=== PATIENT | female | born 1975 | race Two or more races ===

== ENCOUNTER 2025-03-12 15:27 | Inpatient (IN) | payer OTHER ==
[~2025-03-12] VITALS: Ht 170.2 cm; Wt 111.6 kg
--- NOTE | 2025-03-12 15:49 | ED.PDOC ---
GI ASSESSMENT HPI Comments 49-year-old female with a history of asthma and fibromyalgia brought in by self complaining of mid and lower abdominal pain and diarrhea for the last week. Patient states the pain is cramping, which has now progressed to burning, and she has had multiple episodes of diarrhea despite taking Imodium 7 or 8 times. She did have 1 episode of nausea and vomiting. She denies any blood in her vomit or stools. She denies fever, dysuria or sick contacts. Time Seen by MD: 15:30 Reviewed Notes: Nurses Notes, Medications, Allergies Allergies: Coded Allergies: Aspirin (Verified Allergy, Unknown, 03/12/25) Chlorhexidine (Verified Allergy, Unknown, 03/12/25) Latex (Verified Allergy, Unknown, 03/12/25) Sulfa Antibiotics (Verified Allergy, Unknown, 03/12/25) Information Source: Patient Mode of Arrival: Ambulatory Timing: Days Duration: Since onset, Days Prehospital treatment: None Quality: Burning, Cramping Vomitus: Bilious Stool: Loose Severity: Moderate Recent: None Recent Hx of: None Pain Location: Diffuse Associated sign and symptoms: Nausea, Vomiting, Diarrhea, Abdominal Pain Past Medical History PAST MEDICAL HISTORY: Asthma Past Medical History (Other): Fibromyalgia Surgical History: Appendectomy, Cholecystectomy, , Hernia Repair Surgical History (Other): perforated ulcer, Gastric Bypass, pilonidal cyst removal HOME APPLIANCE INSTALLER History: No Pertinent HOME APPLIANCE INSTALLER History Family History Family History: Reviewed,noncontributory to illness, Unknown Social History Smoker: Non-Smoker Alcohol: Denies ETOH Use Drugs: Denies Drug Use Lives In: Home Constitutional: denies: chills, diaphoresis, fatigue, fever, malaise, sweats, weakness, others EENTM: denies: blurred vision, double vision, ear bleeding, ear discharge, ear drainage, ear pain, ear ringing, eye pain, eye redness, hearing loss, mouth pain, mouth swelling, nasal discharge, nose bleeding, nose congestion, nose pain, photophobia, tearing, throat pain, throat swelling, voice changes, others Respiratory: denies: cough, hemoptysis, orthopnea, SOB at rest, shortness of breath, SOB with excertion, stridor, wheezing, others Cardiovascular: denies: chest pain, dizzy spells, diaphoresis, Dyspnea on exertion, edema, irregular heart beat, left arm pain, lightheadedness, palpitations, PND, syncope, others Gastrointestinal: reports: abdominal pain, diarrhea, nausea, vomiting; denies: abdomen distended, blood streaked bowels, constipated, dysphagia, difficulty swallowing, hematemesis, melena, poor appetite, poor fluid intake, rectal bleeding, rectal pain, others Genitourinary: denies: abnormal vagina bleeding, burning, dyspareunia, dysuria, flank pain, frequency, hematuria, incontinence, pain, , vagina discharge, urgency, others Neurological: denies: dizziness, fainting, headache, left sided numbness, left sided weakness, numbness, paresthesia, pre-existing deficit, right sided numbness, right sided weakness, seizure, speech problems, tingling, tremors, weakness, others Musculoskeletal: denies: back pain, gout, joint pain, joint swelling, muscle pain, muscle stiffness, neck pain, others Integumetry: denies: bruises, change in color, change in hair/nails, dryness, laceration, lesions, lumps, rash, wounds, others Allergic/Immunocompromised: denies: Difficulty Healing, Frequent Infections, Hives, Itching, others Hematologic/Lymphatic: denies: anemia, blood clots, easy bleeding, easy bruising, swollen glands, others Endocrine: denies: excessive hunger, excessive sweating, excessive thirst, excessive urination, flushing, intolerance to cold, intolerance to heat, unexplained weight gain, unexplained weight loss, others Psychiatric: denies: anxiety, bipolar disorder, depression, hopeless, panic disorder, schizophrenia, sleepless, suicidal, others All Other Systems: Reviewed and Negative Physical Exam General Appearance: Mild Distress, Obese HEENT: Other (Pupils and face symmetric. Dry mucous membranes.) Neck: Full Range of Motion, Normal Inspection Respiratory: Lungs Clear, No Accessory Muscle Use, No Respiratory Distress, Normal Breath Sounds Cardiovascular: No Edema, No JVD, Regular Rate/Rhythm Breast Exam: Deferred Gastrointestinal: Soft, Tenderness (Generalized periumbilical and lower abdominal tenderness to palpation. No rebound or guarding.) Genitalia: Deferred Pelvic: Deferred Rectal: Deferred Extremities: Normal inspection, Normal range of motion, Non-tender, No pedal edema Musculoskeletal : Apperance: Normal Neurologic: Alert (Oriented x4), Normal Affect, Normal Mood, Other (Ambulatory without difficulty. ) Cerebellar Function: NOT DONE Reflexes: NOT DONE Skin: Dry, Normal Color, Warm Lymphatic: NOT DONE Was a procedure done? Was a procedure done?: No GI differential Dx Differential Diagnosis: Diverticular disease, Gastritis/PUD, Gastroenteritis, Inflammatory BD, Ischemic Bowel, UTI, Dehydration, Diabetes/ DKA, Electrolyte Imbalance, Food Poisoning, , Bacterial, Viral, Hypovolemia, Renal Failure, Stress Ulcer, Kidney Stone X-Ray, Labs, Meds, VS Vital Signs Date Time Temp Pulse Resp B/P (MAP) Pulse Ox O2 Delivery O2 Flow Rate FiO2 03/12/25 21:30 98.9 73 18 120/75 96 98.9 03/12/25 17:12 73 18 120/75 (90) 96 03/12/25 17:12 73 18 120/75 03/12/25 16:41 95 16 135/90 03/12/25 16:29 69 16 95 Room Air 03/12/25 16:29 98.9 69 16 135/90 (105) 95 98.9 03/12/25 15:45 98.9 67 18 109/58 (75) 97 98.9 Lab Test 03/12/25 16:15 03/12/25 15:48 Range/Units White Blood Count 6.7 4.4-10.8 10^3/uL Red Blood Count 4.67 4.0-5.20 10^6/uL Hemoglobin 13.8 12.2-16.2 g/dL Hematocrit 40.9 36.0-46.0 % Mean Corpuscular Volume 87.6 80.0-100.0 fL Mean Corpuscular Hemoglobin 29.6 28.0-32.0 pg Mean Corpuscular Hemoglobin Concent 33.8 32.0-36.0 g/dL Red Cell Distribution Width 14.5 H 11.8-14.3 % Platelet Count 179 140-450 10^3/uL Mean Platelet Volume 11.5 H 6.9-10.8 fL Neutrophils (%) (Auto) 58.9 37.0-80.0 % Lymphocytes (%) (Auto) 29.1 10.0-50.0 % Monocytes (%) (Auto) 9.9 0.0-12.0 % Eosinophils (%) (Auto) 1.8 0.0-7.0 % Basophils (%) (Auto) 0.3 0.0-2.0 % Neutrophils # (Auto) 3.9 1.6-8.6 10 ^3/uL Lymphocytes # (Auto) 1.9 0.4-5.4 10 ^3/uL Monocytes # (Auto) 0.7 0-1.3 10 ^3/uL Eosinophils # (Auto) 0.1 0-0.8 10 ^3/uL Basophils # (Auto) 0 0-0.2 10 ^3/uL Nucleated Red Blood Cells 0.1 % Sodium Level 142 136-145 mmol/L Potassium Level 3.8 3.5-5.1 mmol/L Chloride Level 108 H 98-107 mmol/L Carbon Dioxide Level 26 20-31 mmol/L Anion Gap 8 5-15 Blood Urea Nitrogen 7 L 9-23 mg/dL Creatinine 0.82 0.550-1.02 mg/dL Glomerular Filtration Rate Calc 87 >90 mL/min BUN/Creatinine Ratio 8.5 L 10.0-20.0 Serum Glucose 101 74-106 mg/dL Lactic Acid Level 0.9 0.4-2.0 mmol/L Calcium Level 9.6 8.7-10.4 mg/dL Total Bilirubin 0.9 0.2-1.0 mg/dL Aspartate Amino Transferase (AST) 16 13-40 U/L Alanine Aminotransferase (ALT) 21 7-40 U/L Alkaline Phosphatase 86 46-116 U/L Total Protein 6.9 5.7-8.2 g/dL Albumin 4.4 3.2-4.8 g/dL Lipase 30 12-53 U/L Beta HCG, Quantitative 5.5 H 1.5-4.2 mIU/mL Urine Color Light-yellow Yellow Urine Clarity Clear Clear Urine pH 6.0 5.0-9.0 Urine Specific [place] 1.014 1.001-1.035 Urine Protein Negative Negative Urine Ketones Negative Negative Urine Blood Negative Negative /uL Urine Nitrite Negative Negative Urine Bilirubin Negative Negative Urine Urobilinogen Normal Negative mg/dL Urine Leukocyte Esterase Negative Negative /uL Urine RBC <1 0 - 4 /hpf Urine Microscopic WBC 1 0-5 /HPF Urine Squamous Epithelial Cells Few <5 /hpf Urine Bacteria None seen None Seen /hpf Urine Glucose Normal Normal mg/dL Urine Test Negative Negative Current Medications Medications (Trade) Dose Ordered Sig/Tim Route Start Time Stop Time Status Last Admin Sodium Chloride 2,000 ml @ 1,000 mls/hr Q2H ONCE IV 03/12/25 16:00 03/12/25 17:59 DC 03/12/25 16:21 Ondansetron HCl (Zofran) 4 mg ONCE ONCE IV 03/12/25 16:00 03/12/25 16:01 DC 03/12/25 16:39 Dicyclomine HCl (Bentyl Injection) 20 mg ONCE ONCE IM 03/12/25 16:00 03/12/25 16:01 DC 03/12/25 16:25 Hydromorphone HCl (Dilaudid Injection) 1 mg ONCE ONCE IV 03/12/25 16:00 03/12/25 16:01 DC 03/12/25 16:41 Pantoprazole Sodium (Protonix) 40 mg ONCE ONCE IV 03/12/25 16:00 03/12/25 16:01 DC 03/12/25 16:40 PROCEDURE(s): ABPL - CT AB PEL WO CON-NO ORAL OR IV REASON: mid/low abd pain, n/v/d ORDER NUMBER(s): [id number], ACCESSION NUMBER(s): [id number] Exam: CT CT AB PEL WO CON-NO ORAL OR IV History: mid/low abd pain, n/v/d Comparison Study: None available at time of dictation. TECHNIQUE: Multidetector CT of the abdomen was performed from lung bases to pubic symphysis. Imaging was performed without IV contrast. Axial, coronal and sagittal multiplanar reformats were obtained from the axial data set by the technologist. Radiation Dose Information: CT Dose: CTDI volume is 26.51 mGy. Dose-length product is 1431.12 mGy*cm FINDINGS: Evaluation of solid organs is limited due to lack of intravenous contrast use. Findings: Lung Bases: No acute or significant lung base finding. Normal heart size. No pleural or pericardial effusion. Liver: The liver is normal in size. No focal lesions. Gallbladder and Biliary Tree: Gallbladder has been surgically removed. Spleen: Unremarkable Pancreas: The pancreas is grossly normal in appearance. Adrenal Glands: Unremarkable Kidneys: Kidneys are grossly normal without calculi or hydronephrosis. Bladder: Grossly unremarkable for degree of distention. Bowel: The stomach is grossly normal in appearance. Postop changes in the stom ach. Small bowel and colon are normal in caliber and distribution. The appendix is not visualized; however, no secondary findings of acute appendicitis identified. Ascites: Absent Lymphadenopathy: No mesenteric, retroperitoneal or periportal lymphadenopathy. Abdominal Wall and Mesentery: 6 cm umbilical hernia containing mesenteric fat and bowel. Vasculature: The visualized abdominal aorta is normal in size and caliber. Evaluation of abdominal and pelvic vessels is limited due to lack of intravenous contrast. Pelvic Organs: Unremarkable Musculoskeletal: No aggressive focal bony lesions, acute fractures or dislocation. Soft tissues: Unremarkable IMPRESSION: 1. Gallbladder surgically removed 2. Postop changes to the stomach 3. No findings to suggest bowel obstruction. 4. No nephrolithiasis or hydronephrosis. 5. 6 cm umbilical hernia containing bowel and mesenteric fat. Radiation optimization: All CT scans at this facility use at least one of these dose optimization techniques: automated exposure control mA and/or kV adjustment per patient size (includes targeted exams where dose is matched to clinical indication) or iterative reconstruction. X-Ray, Labs, Meds, VS Comment 49-year-old female with a history of asthma and fibromyalgia complaining of abdominal cramping/burning pain, persistent diarrhea despite taking multiple doses of Imodium, nausea and vomiting Vitals remarkable for BP 109/58 Exam remarkable for generalized mid and lower abdominal tenderness to palpation Rhythm strip independently interpreted by me: Sinus rhythm, rate 67, no ectopy. CT abdomen and pelvis IMPRESSION: 1. Gallbladder surgically removed 2. Postop changes to the stomach 3. No findings to suggest bowel obstruction. 4. No nephrolithiasis or hydronephrosis. 5. 6 cm umbilical hernia containing bowel and mesenteric fat. CBC, CMP, lipase, UA and lactate unremarkable Patient treated with the following in the ED: 1 L 0.9 normal saline IV bolus, Dilaudid 1 mg IV, Zofran 4 mg IV, Protonix 40 mg IV, Bentyl 20 mg IM, Dilaudid 1 mg IV On re-evaluation, patient states pain is still present. She is still having diarrhea every time she takes in anything orally. Plan is to admit the patient for pain control and ongoing IV hydration. Time of 1ST Reevaluation: 16:00 Reevaluation 1ST: Unchanged Patient Education/Counseling: Diagnosis, Treatment, Prognosis Family Education/Counseling: No Family Present Departure 1 Departure Time of Disposition: 19:19 Impression: Primary Impression: Vomiting and diarrhea Additional Impression: Intractable abdominal pain Disposition: ADMITTED INPATIENT Admit to: Med Surg Condition: Guarded Critical Care Note Critical Care Time?: No Stability Stability form required: No Heart Score Heart Score: Heart Score Response (Comments) Value History N/A 0 EKG N/A 0 Age N/A 0 Risk Factors N/A 0 Troponin N/A 0 Total 0 I personally scribed for DAVID ZARATE MD ([email or web address]) on 03/12/25 at 15:49. Electronically submitted by Saulo Begum ([email or web address]). DAVID ZARATE MD Mar 12, 2025 15:49
[2025-03-12] MEDS: SODIUM CHLORIDE 0.9% 2,000 ML IV ONE (16:21)
[2025-03-12] MEDS: DICYCLOMINE HCL (10MG/ML) 2 ML AMPULE IM ONE (16:25)
[2025-03-12] MEDS: ONDANSETRON HCL 4 MG/2 ML VIAL IV ONE ×2 (16:39→22:01)
[2025-03-12] MEDS: PANTOPRAZOLE 40 MG/10 ML VIAL INJ IV ONE (16:40)
[2025-03-12] MEDS: HYDROmorphone HCL 2 MG/ML VL/or syr IV ONE ×2 (16:41→21:53)
[2025-03-12 16:47] LABS: Basophils # (auto) 0 10 ^3/uL (0-0.2); Basophils % (auto) 0.3 % (0.0-2.0); Eosinophils # (auto) 0.1 10 ^3/uL (0-0.8); Eosinophils % (auto) 1.8 % (0.0-7.0); Hematocrit 40.9 % (36.0-46.0); Hemoglobin 13.8 g/dL (12.2-16.2); Lymphocytes # (auto) 1.9 10 ^3/uL (0.4-5.4); Lymphocytes % (auto) 29.1 % (10.0-50.0); Mean Corpuscular Hemoglobin 29.6 pg (28.0-32.0); Mean Corpuscular Hgb Conc. 33.8 g/dL (32.0-36.0); Mean Corpuscular Volume 87.6 fL (80.0-100.0); Monocytes # (auto) 0.7 10 ^3/uL (0-1.3); Monocytes % (auto) 9.9 % (0.0-12.0); Neutrophils # (auto) 3.9 10 ^3/uL (1.6-8.6); Neutrophils % (auto) 58.9 % (37.0-80.0); Nucleated Red Blood Cells % 0.1 %; Platelet Count (auto) 179 10^3/uL (140-450); Red Blood Cells 4.67 10^6/uL (4.0-5.20); Red Cell Distribution Width 14.5 % (11.8-14.3); White Blood Cell 6.7 10^3/uL (4.4-10.8)
[2025-03-12 17:00] LABS: Alanine Aminotransferase 21 U/L (7-40); Albumin 4.4 g/dL (3.2-4.8); Alkaline Phosphatase 86 U/L (46-116); Anion Gap 8 (5-15); Aspartate Aminotransferase 16 U/L (13-40); BUN/Creatinine Ratio 8.5 (10.0-20.0); Calcium 9.6 mg/dL (8.7-10.4); Carbon Dioxide 26 mmol/L (20-31); Glucose 101 mg/dL (74-106); Lipase 30 U/L (12-53); Potassium 3.8 mmol/L (3.5-5.1); Sodium 142 mmol/L (136-145); Total Protein 6.9 g/dL (5.7-8.2)
[2025-03-12 17:01] LABS: Bilirubin, Total 0.9 mg/dL (0.2-1.0); Blood Urea Nitrogen 7 mg/dL (9-23); Chloride 108 mmol/L (98-107)
[2025-03-12 17:06] LABS: Urine Bacteria None Seen /hpf (None Seen)
[2025-03-12 17:17] LABS: Urine Blood Negative /uL (Negative); Urine Clarity Clear (Clear); Urine Color Light-Yellow (Yellow); Urine Protein, UAD Negative (Negative); Urine Specific Gravity 1.014 (1.001-1.035); Urine Squamous Epithelial Cell FEW /hpf (<5); Urine Urobilinogen Normal (Negative); Urine WBC 1 /HPF (0-5)
--- NOTE | 2025-03-12 18:35 | DVH ---
Exam: CT CT AB PEL WO CON-NO ORAL OR IV History: mid/low abd pain, n/v/d Comparison Study: None available at time of dictation. TECHNIQUE: Multidetector CT of the abdomen was performed from lung bases to pubic symphysis. Imaging was performed without IV contrast. Axial, coronal and sagittal multiplanar reformats were obtained fr om the axial data set by the technologist. Radiation Dose Information: CT Dose: CTDI volume is 26.51 mGy. Dose-length product is 1431.12 mGy*cm FINDINGS: Evaluation of solid organs is limited due to lack of intravenous contrast use. Findings: Lung Bases: No acute or significant lung base finding. Normal heart size. No pleural or pericardial effusion. Liver: The liver is normal in size. No focal lesions. Gallbladder and Biliary Tree: Gallbladder has been surgically removed. Spleen: Unremarkable Pancreas: The pancreas is grossly normal in appearance. Adrenal Glands: Unremarkable Kidneys: Kidneys are grossly normal without calculi or hydronephrosis. Bladder: Grossly unremarkable for degree of distention. Bowel: The stomach is grossly normal in appearance. Postop changes in the stomach. Small bowel and co maite are normal in caliber and distribution. The appendix is not visualized; however, no secondary fi ndings of acute appendicitis identified. Ascites: Absent Lymphadenopathy: No mesenteric, retroperitoneal or periportal lymphadenopathy. Abdominal Wall and Mesentery: 6 cm umbilical hernia containing mesenteric fat and bowel. Vasculature: The visualized abdominal aorta is normal in size and caliber. Evaluation of abdominal a nd pelvic vessels is limited due to lack of intravenous contrast. Pelvic Organs: Unremarkable Musculoskeletal: No aggressive focal bony lesions, acute fractures or dislocation. Soft tissues: Unremarkable IMPRESSION: 1. Gallbladder surgically removed 2. Postop changes to the stomach 3. No findings to suggest bowel obstruction. 4. No nephrolithiasis or hydronephrosis. 5. 6 cm umbilical hernia containing bowel and mesenteric fat. Radiation optimization: All CT scans at this facility use at least one of these dose optimization mina hniques: automated exposure control mA and/or kV adjustment per patient size (includes targeted exam s where dose is matched to clinical indication) or iterative reconstruction.
[2025-03-12] MEDS ORDERED: LOPERAMIDE HCL 2 MG CAP/TAB PO PRN (21:15)
[2025-03-12] MEDS ORDERED: ALBUTEROL SULF 2.5 MG/0.5ML(0.5%) NEB SOLN NEB PRN (21:15)
[2025-03-12 21:30] VITALS: BP 120/75; PULSE 73; RESP 18; TEMP 98.9; O2SAT 96
[2025-03-12 21:44] VITALS: PULSE 64; RESP 16; O2SAT 97
[2025-03-12 21:51] VITALS: O2SAT 96
[2025-03-12] MEDS: SODIUM CHLORIDE 0.9% 1,000 ML IV ONE (22:01)
[2025-03-12] MEDS: GABAPENTIN 100 MG CAP PO SCH (22:07)
[2025-03-13] VITALS (12 sets, daily range): BP systolic 97–126; BP diastolic 50–77; PULSE 58–77; RESP 16–18; TEMP 97.3–98.3; O2SAT 95–98
--- NOTE | 2025-03-13 00:45 | DVHHP2 ---
History of Present Illness Reason for Visit: Abdominal pain History of Present Illness 49-year-old female presents for evaluation of abdominal pain. Patient endorses a one-week history of diffuse abdominal pain with associated diarrhea. Denies nausea or vomiting. She reports having seven episodes of watery diarrhea today. No fever or chills. No other acute complaints. Past Medical History Asthma and fibromyalgia Past Surgical History Cholecystectomy, , hernia repair,, gastric bypass Family History Noncontributory Smoke: No ALCOHOL: none Drugs: None Lives: with Family Review of Systems Review of Systems Review of systems are currently negative otherwise addressed in HPI. Allergies: Coded Allergies: Aspirin (Verified Allergy, Unknown, 03/12/25) Chlorhexidine (Verified Allergy, Unknown, 03/12/25) Latex (Verified Allergy, Unknown, 03/12/25) Sulfa Antibiotics (Verified Allergy, Unknown, 03/12/25) Medications Current Medications Medications Dose Ordered Sig/Tim Route Start Time Stop Time Status Last Admin Dose Admin Loperamide HCl 2 mg PRN PRN PO 03/12/25 21:15 Gabapentin 200 mg TID PO 03/12/25 22:00 03/12/25 22:07 200 MG Pantoprazole Sodium 40 mg DAILY@0600 PO 03/13/25 06:00 Albuterol 2.5 mg Q6HPRN PRN NEB 03/12/25 21:15 Acetaminophen/ Hydrocodone Bitart 1 tab Q4HP PRN PO 03/12/25 21:15 Ondansetron HCl 4 mg Q4HP PRN IV 03/12/25 21:15 Acetaminophen 650 mg Q6HP PRN PO 03/12/25 21:15 Morphine Sulfate 2 mg Q4HPRN PRN IV 03/12/25 21:15 Exam Vital Signs Vital Signs Date Time Temp Pulse Resp B/P (MAP) Pulse Ox O2 Delivery O2 Flow Rate FiO2 03/12/25 21:53 64 16 114/61 03/12/25 21:51 96 Room Air* 0 03/12/25 21:43 98.7 98.7 Exam Gen: 49-year-old female in no apparent distress Skin: Warm, dry, normal color and texture, no rash. HEENT: Normocephalic atraumatic, mucous membranes moist and pink. Neck: Cervical and supraclavicular nodes normal without enlargement, trachea is midline, thyroid gland is normal without masses. Pulmonary: Clear to auscultation and percussion bilaterally. Cardiac: Regular rate and rhythm. No murmur Abdomen: Soft, nontender, nondistended, bowel sounds present all 4 quadrants, no guarding, no rigidity, no organomegaly. Extremities: No cyanosis, clubbing, no edema Neuro: Cranial nerves II through XII grossly intact, normal affect and speech, no focal motor deficits. Labs/Xrays ORDERING PHYSICIAN: DAVID ZARATE MD PROCEDURE(s): ABPL - CT AB PEL WO CON-NO ORAL OR IV REASON: mid/low abd pain, n/v/d ORDER NUMBER(s): [id number], ACCESSION NUMBER(s): [id number] Exam: CT CT AB PEL WO CON-NO ORAL OR IV History: mid/low abd pain, n/v/d Comparison Study: None available at time of dictation. TECHNIQUE: Multidetector CT of the abdomen was performed from lung bases to pubic symphysis. Imaging was performed without IV contrast. Axial, coronal and sagittal multiplanar reformats were obtained from the axial data set by the technologist. Radiation Dose Information: CT Dose: CTDI volume is 26.51 mGy. Dose-length product is 1431.12 mGy*cm FINDINGS: Evaluation of solid organs is limited due to lack of intravenous contrast use. Findings: Lung Bases: No acute or significant lung base finding. Normal heart size. No pleural or pericardial effusion. Liver: The liver is normal in size. No focal lesions. Gallbladder and Biliary Tree: Gallbladder has been surgically removed. Spleen: Unremarkable Pancreas: The pancreas is grossly normal in appearance. Adrenal Glands: Unremarkable Kidneys: Kidneys are grossly normal without calculi or hydronephrosis. Bladder: Grossly unremarkable for degree of distention. Bowel: The stomach is grossly normal in appearance. Postop changes in the stomach. Small bowel and colon are normal in caliber and distribution. The appendix is not visualized; however, no secondary findings of acute appendicitis identified. Ascites: Absent Lymphadenopathy: No mesenteric, retroperitoneal or periportal lymphadenopathy. Abdominal Wall and Mesentery: 6 cm umbilical hernia containing mesenteric fat and bowel. Vasculature: The visualized abdominal aorta is normal in size and caliber. Evaluation of abdominal and pelvic vessels is limited due to lack of intravenous contrast. Pelvic Organs: Unremarkable Musculoskeletal: No aggressive focal bony lesions, acute fractures or dislocation. Soft tissues: Unremarkable IMPRESSION: 1. Gallbladder surgically removed 2. Postop changes to the stomach 3. No findings to suggest bowel obstruction. 4. No nephrolithiasis or hydronephrosis. 5. 6 cm umbilical hernia containing bowel and mesenteric fat. Radiation optimization: All CT scans at this facility use at least one of these dose optimization techniques: automated exposure control mA and/or kV adjustment per patient size (includes targeted exams where dose is matched to clinical indication) or iterative reconstruction. Labs Test 03/12/25 16:15 03/12/25 15:48 Range/Units White Blood Count 6.7 4.4-10.8 10^3/uL Red Blood Count 4.67 4.0-5.20 10^6/uL Hemoglobin 13.8 12.2-16.2 g/dL Hematocrit 40.9 36.0-46.0 % Mean Corpuscular Volume 87.6 80.0-100.0 fL Mean Corpuscular Hemoglobin 29.6 28.0-32.0 pg Mean Corpuscular Hemoglobin Concent 33.8 32.0-36.0 g/dL Red Cell Distribution Width 14.5 H 11.8-14.3 % Platelet Count 179 140-450 10^3/uL Mean Platelet Volume 11.5 H 6.9-10.8 fL Neutrophils (%) (Auto) 58.9 37.0-80.0 % Lymphocytes (%) (Auto) 29.1 10.0-50.0 % Monocytes (%) (Auto) 9.9 0.0-12.0 % Eosinophils (%) (Auto) 1.8 0.0-7.0 % Basophils (%) (Auto) 0.3 0.0-2.0 % Neutrophils # (Auto) 3.9 1.6-8.6 10 ^3/uL Lymphocytes # (Auto) 1.9 0.4-5.4 10 ^3/uL Monocytes # (Auto) 0.7 0-1.3 10 ^3/uL Eosinophils # (Auto) 0.1 0-0.8 10 ^3/uL Basophils # (Auto) 0 0-0.2 10 ^3/uL Nucleated Red Blood Cells 0.1 % Sodium Level 142 136-145 mmol/L Potassium Level 3.8 3.5-5.1 mmol/L Chloride Level 108 H 98-107 mmol/L Carbon Dioxide Level 26 20-31 mmol/L Anion Gap 8 5-15 Blood Urea Nitrogen 7 L 9-23 mg/dL Creatinine 0.82 0.550-1.02 mg/dL Glomerular Filtration Rate Calc 87 >90 mL/min BUN/Creatinine Ratio 8.5 L 10.0-20.0 Serum Glucose 101 74-106 mg/dL Lactic Acid Level 0.9 0.4-2.0 mmol/L Calcium Level 9.6 8.7-10.4 mg/dL Total Bilirubin 0.9 0.2-1.0 mg/dL Aspartate Amino Transferase (AST) 16 13-40 U/L Alanine Aminotransferase (ALT) 21 7-40 U/L Alkaline Phosphatase 86 46-116 U/L Total Protein 6.9 5.7-8.2 g/dL Albumin 4.4 3.2-4.8 g/dL Lipase 30 12-53 U/L Beta HCG, Quantitative 5.5 H 1.5-4.2 mIU/mL Urine Color Light-yellow Yellow Urine Clarity Clear Clear Urine pH 6.0 5.0-9.0 Urine Specific [place] 1.014 1.001-1.035 Urine Protein Negative Negative Urine Ketones Negative Negative Urine Blood Negative Negative /uL Urine Nitrite Negative Negative Urine Bilirubin Negative Negative Urine Urobilinogen Normal Negative mg/dL Urine Leukocyte Esterase Negative Negative /uL Urine RBC <1 0 - 4 /hpf Urine Microscopic WBC 1 0-5 /HPF Urine Squamous Epithelial Cells Few <5 /hpf Urine Bacteria None seen None Seen /hpf Urine Glucose Normal Normal mg/dL Urine Test Negative Negative Assessment/Plan Assessment/Plan Assessment Acute abdominal pain Acute enteritis Plan Admit the patient to [facility] to the hospitalist Clear liquid diet Pain management Maintenance IV fluids Continue treatment per orders. Plan discussed with: Patient My Orders Orders - SANTHOSH DON Procedure Category Date Status Time Loperamide Capsule PHA 03/12/25 In Process (Imodium Capsule) 21:15 Stool Bacterial AUTUMN 03/12/25 Logged Culture 21:02 Clostridium Difficile AUTUMN 03/12/25 Logged Toxin 21:02 Gabapentin Capsule PHA 03/12/25 In Process (Neurontin Capsule) 22:00 Pantoprazole Tablet PHA 4/19/25 In Process (Protonix Tablet) 06:00 Albuterol Medneb PHA 03/12/25 In Process (Ventolin Medneb) 21:15 Basic Metabolic Panel LAB 03/13/25 Logged 04:00 Sodium Chloride 0.9% PHA 03/12/25 In Process 21:15 Admit ADMIT 03/12/25 Transmitted 21:02 Hydrocodone-Acet PHA 03/12/25 In Process 5/325mg Tab ([place] 21:15 Ondansetron Hcl PHA 03/12/25 In Process (Zofran) 21:15 Condition: Stable SOURAV 03/12/25 In Process 21:02 Acetaminophen Tablet PHA 03/12/25 In Process (Tylenol Tablet) 21:15 Clear Liq Diet DIET 03/13/25 Transmitted Breakfast Bedrest With Bathroom SOURAV 03/12/25 In Process Privileg 21:02 Morphine Sulfate PHA 03/12/25 In Process Injection 21:15 Date of Service: Mar 12, 2025 Billing Provider: SANTHOSH DON Common Visit Codes: [id number] INP/OBS CARE (MOD) SANTHOSH DON Mar 13, 2025 00:45
[2025-03-13] MEDS ORDERED: HYDR4TAB3 PO (01:14)
[2025-03-13] MEDS ORDERED: METH-1182 PO (01:14)
[2025-03-13] MEDS ORDERED: GABA-1250 PO (01:14)
[2025-03-13] MEDS ORDERED: ZOLP10TA6 PO (01:14)
[2025-03-13] MEDS: MORPHINE SULFATE INJ 2 MG/ml SYRG IV PRN (02:44)
[2025-03-13] MEDS: ONDANSETRON HCL 4 MG/2 ML VIAL IV PRN (02:52)
[2025-03-13] MEDS: PANTOPRAZOLE 40 MG TAB PO SCH (05:04)
[2025-03-13 05:44] LABS: Potassium 3.8 mmol/L (3.5-5.1); Sodium 143 mmol/L (136-145)
[2025-03-13 05:45] LABS: Anion Gap 8 (5-15); Carbon Dioxide 25 mmol/L (20-31)
[2025-03-13 05:46] LABS: Calcium 8.8 mg/dL (8.7-10.4)
[2025-03-13 05:50] LABS: BUN/Creatinine Ratio 8.8 (10.0-20.0)
[2025-03-13 05:51] LABS: Blood Urea Nitrogen 7 mg/dL (9-23); Chloride 110 mmol/L (98-107); Glucose 127 mg/dL (74-106)
--- NOTE | 2025-03-13 12:29 | DVHPN2 ---
Reviewed: Care Plan, H&P, Labs, Medications, Previous Orders, Radiology Changes from previous H/P or p: No Changes Objective Vitals Vital Signs Date Time Temp Pulse Resp B/P (MAP) Pulse Ox O2 Delivery O2 Flow Rate FiO2 03/13/25 10:30 96 Room Air* 0 21 03/13/25 09:00 98.3 70 16 111/75 (87) 98.3 Intake/Output Intake and Output 03/13/25 07:00 Intake Total 2000 ml Balance 2000 ml Intake Oral 0 ml IV Total 2000 ml # Voids 3 # Bowel Movements 2 Medications Current Medications Medications Dose Ordered Sig/Tim Route Start Time Stop Time Status Last Admin Dose Admin Loperamide HCl 2 mg PRN PRN PO 03/12/25 21:15 Gabapentin 200 mg TID PO 03/12/25 22:00 03/13/25 05:05 200 MG Pantoprazole Sodium 40 mg DAILY@0600 PO 03/13/25 06:00 03/13/25 05:04 40 MG Albuterol 2.5 mg Q6HPRN PRN NEB 03/12/25 21:15 Acetaminophen/ Hydrocodone Bitart 1 tab Q4HP PRN PO 03/12/25 21:15 Ondansetron HCl 4 mg Q4HP PRN IV 03/12/25 21:15 03/13/25 02:52 4 MG Acetaminophen 650 mg Q6HP PRN PO 03/12/25 21:15 Morphine Sulfate 2 mg Q4HPRN PRN IV 03/12/25 21:15 03/13/25 02:44 2 MG Laboratory Results Laboratory Tests 03/12/25 16:15 03/13/25 04:24 Chemistry Test 03/12/25 16:15 03/13/25 04:24 Albumin 4.4 g/dL (3.2-4.8) Calcium Level 9.6 mg/dL (8.7-10.4) 8.8 mg/dL (8.7-10.4) Total Protein 6.9 g/dL (5.7-8.2) Lipid panel Test 03/12/25 16:15 Lipase 30 U/L (12-53) LFT Test 03/12/25 16:15 Alanine Aminotransferase (ALT) 21 U/L (7-40) Alkaline Phosphatase 86 U/L (46-116) Aspartate Amino Transferase (AST) 16 U/L (13-40) Total Bilirubin 0.9 mg/dL (0.2-1.0) Urinalysis Test 03/12/25 15:48 Urine Color Light-yellow (Yellow) Urine Clarity Clear (Clear) Urine pH 6.0 (5.0-9.0) Urine Specific [place] 1.014 (1.001-1.035) Urine Protein Negative (Negative) Urine Ketones Negative (Negative) Urine Blood Negative /uL (Negative) Urine Nitrite Negative (Negative) Urine Bilirubin Negative (Negative) Urine Urobilinogen Normal mg/dL (Negative) Urine Leukocyte Esterase Negative /uL (Negative) Urine RBC <1 /hpf (0 - 4) Urine Microscopic WBC 1 /HPF (0-5) Urine Squamous Epithelial Cells Few /hpf (<5) Urine Bacteria None seen /hpf (None Seen) Urine Glucose Normal mg/dL (Normal) Urine Test Negative (Negative) Labs and/or images reviewed: Labs reviewed by me, Image(s) reviewed by me Assessment/Plan Assessment/Plan Acute abdominal pain Acute enteritis : Thai, consult for GI Dr. Wolf CT abdomen pelvis without contrast negative Possible food poisoning: Patient ate salad in a restaurant two days ago Plan discussed with: Patient My Orders Orders - BLANCA BENAVIDES MD Procedure Category Date Status Time * Gi Dvh Sap Project Manager CONS 03/13/25 Transmitted 12:21 Date of Service: Mar 13, 2025 Billing Provider: BLANCA BENAVIDES MD Common Visit Codes: [id number] INP/OBS CARE(HIGH) BLANCA BENAVIDES MD Mar 13, 2025 12:29
[2025-03-13] MEDS: LACTATED RINGER'S 1,000 ML IV SCH (12:45)
[2025-03-13] MEDS: metroNIDAZOLE 500 MG TAB PO ONE (12:45)
[2025-03-13] MEDS: GABAPENTIN 300 MG CAP PO SCH (14:06)
[2025-03-13] MEDS: FLUCONAZOLE 100 MG TAB PO ONE (14:55)
--- NOTE | 2025-03-13 18:23 | DVHINCON2 ---
Date of service: Mar 13, [address] Erazo Reason for Consultation Abdominal pain diarrhea History of Present Illness This 49-year-old female presented to the emergency room with complaints of one week history of abdominal pain which is diffuse with the associated with gianfranco rrhea no nausea no vomiting no history of any unusual food ingestion were diarrhea very copious watery about 67-8 bowel movements per day no fever chills or other systemic symptoms no history of any unusual food ingestion no history of any travel no history of any antibiotic intake recently Past Medical History Asthma fibromyalgia Past Surgical History Cholecystectomy hernia repair gastric bypass Family History: Patient reports no known family medical history. Family History Noncontributory Social History Denies smoking or drinking Allergies: Coded Allergies: Banana (Verified Allergy, Severe, 03/13/25) Honey (Verified Allergy, Severe, 03/13/25) Kiwi Extract (Verified Allergy, Severe, 03/13/25) Pineapple (Verified Allergy, Severe, 03/13/25) Aspirin (Verified Allergy, Unknown, 03/12/25) Chlorhexidine (Verified Allergy, Unknown, 03/12/25) Latex (Verified Allergy, Unknown, 03/12/25) Sulfa Antibiotics (Verified Allergy, Unknown, 03/12/25) Home Meds Reported Medications Hydromorphone Hcl (Hydromorphone Hcl) 4 Mg Tab, 1 TAB PO QID PRN for PAIN SCALE 7 THRU 10 03/13/25 Methocarbamol (Methocarbamol) 750 Mg Tab, 2 TAB PO QID 03/13/25 Gabapentin (Gabapentin) 300 Mg Cap, 900 CAP PO 03/13/25 Zolpidem Tartrate (Zolpidem Tartrate) 10 Mg Tab, 1 TAB PO 03/13/25 Current Medications Current Medications Medications (Trade) Dose Ordered Sig/Tim Route PRN Reason Start Time Stop Time Status Last Admin Loperamide HCl (Imodium Capsule) 2 mg PRN PRN PO FOR DIARRHEA 03/12/25 21:15 Gabapentin (Neurontin Capsule) 200 mg TID PO 03/12/25 22:00 03/13/25 12:40 DC 03/13/25 05:05 Pantoprazole Sodium (Protonix Tablet) 40 mg DAILY@0600 PO 03/13/25 06:00 03/13/25 05:04 Albuterol (Ventolin Medneb) 2.5 mg Q6HPRN PRN NEB SHORTNESS OF BREATH 03/12/25 21:15 Acetaminophen/ Hydrocodone Bitart ([place] 5/325MG Tab) 1 tab Q4HP PRN PO MODERATE PAIN (4-6 PAIN SCALE) 03/12/25 21:15 Ondansetron HCl (Zofran) 4 mg Q4HP PRN IV NAUSEA / VOMITING 03/12/25 21:15 03/13/25 02:52 Acetaminophen (Tylenol Tablet) 650 mg Q6HP PRN PO PAIN SCALE 1-3 OR TEMP>100.4 03/12/25 21:15 Morphine Sulfate 2 mg Q4HPRN PRN IV SEVERE PAIN (7-10 PAIN SCALE) 03/12/25 21:15 03/13/25 02:44 Gabapentin (Neurontin Capsule) 900 mg TID PO 03/13/25 14:00 03/13/25 14:06 Zolpidem Tartrate (Ambien) 10 mg HSPRN PRN PO FOR INSOMNIA 03/13/25 12:45 Metronidazole (Flagyl Tablet) 500 mg Q12HR PO 03/13/25 22:00 Lactated Ringer's 1,000 ml @ 150 mls/hr Q6H40M IV 03/13/25 12:45 03/13/25 12:45 Review of Systems Noncontributory Vital Signs Vital Signs Date Time Temp Pulse Resp B/P (MAP) Pulse Ox O2 Delivery O2 Flow Rate FiO2 03/13/25 16:55 97.9 70 17 123/65 (84) 96 97.9 03/13/25 10:30 Room Air* 0 21 Physical Exam Moderately built and nourished female slightly on the obese side in no acute distress Vitals stable Lungs clear Vascular unremarkable Abdomen is soft no mild tenderness in the both lower quadrants no rigidity no guarding no masses Labs/Diagnostic Data Labs Test 03/13/25 04:24 03/12/25 16:15 03/12/25 15:48 Range/Units Sodium Level 143 136-145 mmol/L Potassium Level 3.8 3.5-5.1 mmol/L Chloride Level 110 H 98-107 mmol/L Carbon Dioxide Level 25 20-31 mmol/L Anion Gap 8 5-15 Blood Urea Nitrogen 7 L 9-23 mg/dL Creatinine 0.80 0.550-1.02 mg/dL Glomerular Filtration Rate Calc 90 >90 mL/min BUN/Creatinine Ratio 8.8 L 10.0-20.0 Serum Glucose 127 H 74-106 mg/dL Calcium Level 8.8 8.7-10.4 mg/dL White Blood Count 6.7 4.4-10.8 10^3/uL Red Blood Count 4.67 4.0-5.20 10^6/uL Hemoglobin 13.8 12.2-16.2 g/dL Hematocrit 40.9 36.0-46.0 % Mean Corpuscular Volume 87.6 80.0-100.0 fL Mean Corpuscular Hemoglobin 29.6 28.0-32.0 pg Mean Corpuscular Hemoglobin Concent 33.8 32.0-36.0 g/dL Red Cell Distribution Width 14.5 H 11.8-14.3 % Platelet Count 179 140-450 10^3/uL Mean Platelet Volume 11.5 H 6.9-10.8 fL Neutrophils (%) (Auto) 58.9 37.0-80.0 % Lymphocytes (%) (Auto) 29.1 10.0-50.0 % Monocytes (%) (Auto) 9.9 0.0-12.0 % Eosinophils (%) (Auto) 1.8 0.0-7.0 % Basophils (%) (Auto) 0.3 0.0-2.0 % Neutrophils # (Auto) 3.9 1.6-8.6 10 ^3/uL Lymphocytes # (Auto) 1.9 0.4-5.4 10 ^3/uL Monocytes # (Auto) 0.7 0-1.3 10 ^3/uL Eosinophils # (Auto) 0.1 0-0.8 10 ^3/uL Basophils # (Auto) 0 0-0.2 10 ^3/uL Nucleated Red Blood Cells 0.1 % Lactic Acid Level 0.9 0.4-2.0 mmol/L Total Bilirubin 0.9 0.2-1.0 mg/dL Aspartate Amino Transferase (AST) 16 13-40 U/L Alanine Aminotransferase (ALT) 21 7-40 U/L Alkaline Phosphatase 86 46-116 U/L Total Protein 6.9 5.7-8.2 g/dL Albumin 4.4 3.2-4.8 g/dL Lipase 30 12-53 U/L Beta HCG, Quantitative 5.5 H 1.5-4.2 mIU/mL Urine Color Light-yellow Yellow Urine Clarity Clear Clear Urine pH 6.0 5.0-9.0 Urine Specific [place] 1.014 1.001-1.035 Urine Protein Negative Negative Urine Ketones Negative Negative Urine Blood Negative Negative /uL Urine Nitrite Negative Negative Urine Bilirubin Negative Negative Urine Urobilinogen Normal Negative mg/dL Urine Leukocyte Esterase Negative Negative /uL Urine RBC <1 0 - 4 /hpf Urine Microscopic WBC 1 0-5 /HPF Urine Squamous Epithelial Cells Few <5 /hpf Urine Bacteria None seen None Seen /hpf Urine Glucose Normal Normal mg/dL Urine Test Negative Negative Microbiology Date/Time Source Procedure Growth Status 03/12/25 16:15 Blood Blood Culture - Preliminary NO GROWTH AFTER 24 HOURS OF INCUBATION. Resulted Assessment 49-year-old female with complaints of severe diarrhea for the last one week watery type in any unusual food ingestion antibiotic abuse or travel. No abdominal pains no hematemesis or melena Clinical impression is diarrhea possibly infectious possibility of C diff also can not be excluded Plan/Recommendation Stool studies Treated with Flagyl Area persist may need further evaluation and add vancomycin if C diff is positive Thank you Dr. Wolf Plan discussed with: Patient FLORIDALMA WOLF MD Mar 13, 2025 18:22
[2025-03-13] MEDS: metroNIDAZOLE 500 MG TAB PO SCH (21:09)
[2025-03-13] MEDS: ZOLPIDEM TARTRATE 5 MG TAB PO PRN (22:15)
[2025-03-14] VITALS (9 sets, daily range): BP systolic 110–135; BP diastolic 60–96; PULSE 55–98; RESP 15–18; TEMP 97.3–98.5; O2SAT 94–100
--- NOTE | 2025-03-14 08:26 | DVHPN2 ---
Reviewed: Care Plan, H&P, Labs, Medications, Previous Orders, Radiology Changes from previous H/P or p: No Changes Objective Vitals Vital Signs Date Time Temp Pulse Resp B/P (MAP) Pulse Ox O2 Delivery O2 Flow Rate FiO2 03/14/25 07:28 95 Room Air 0.0 03/14/25 07:28 21 03/14/25 05:06 57 18 130/81 03/14/25 05:00 98.1 98.1 Intake/Output Intake and Output 03/14/25 07:00 Intake Total 4900 ml Balance 4900 ml Intake Oral 1900 ml IV Total 3000 ml # Voids 5 # Bowel Movements 1 Medications Current Medications Medications Dose Ordered Sig/Tim Route Start Time Stop Time Status Last Admin Dose Admin Loperamide HCl 2 mg PRN PRN PO 03/12/25 21:15 Pantoprazole Sodium 40 mg DAILY@0600 PO 03/13/25 06:00 03/14/25 05:32 40 MG Albuterol 2.5 mg Q6HPRN PRN NEB 03/12/25 21:15 Acetaminophen/ Hydrocodone Bitart 1 tab Q4HP PRN PO 03/12/25 21:15 Ondansetron HCl 4 mg Q4HP PRN IV 03/12/25 21:15 03/13/25 20:24 4 MG Acetaminophen 650 mg Q6HP PRN PO 03/12/25 21:15 Morphine Sulfate 2 mg Q4HPRN PRN IV 03/12/25 21:15 03/14/25 04:36 2 MG Gabapentin 900 mg TID PO 03/13/25 14:00 03/14/25 05:32 900 MG Zolpidem Tartrate 10 mg HSPRN PRN PO 03/13/25 12:45 03/13/25 22:15 10 MG Metronidazole 500 mg Q12HR PO 03/13/25 22:00 03/13/25 21:09 500 MG Lactated Ringer's 1,000 ml @ 150 mls/hr Q6H40M IV 03/13/25 12:45 03/14/25 04:14 150 MLS/HR Laboratory Results Laboratory Tests 03/12/25 16:15 03/13/25 04:24 Urinalysis Test 03/12/25 15:48 Urine Color Light-yellow (Yellow) Urine Clarity Clear (Clear) Urine pH 6.0 (5.0-9.0) Urine Specific [place] 1.014 (1.001-1.035) Urine Protein Negative (Negative) Urine Ketones Negative (Negative) Urine Blood Negative /uL (Negative) Urine Nitrite Negative (Negative) Urine Bilirubin Negative (Negative) Urine Urobilinogen Normal mg/dL (Negative) Urine Leukocyte Esterase Negative /uL (Negative) Urine RBC <1 /hpf (0 - 4) Urine Microscopic WBC 1 /HPF (0-5) Urine Squamous Epithelial Cells Few /hpf (<5) Urine Bacteria None seen /hpf (None Seen) Urine Glucose Normal mg/dL (Normal) Urine Test Negative (Negative) Microbiology Microbiology Date/Time Source Procedure Growth Status 03/12/25 16:15 Blood Blood Culture - Preliminary NO GROWTH AFTER 24 HOURS OF INCUBATION. Resulted Labs and/or images reviewed: Labs reviewed by me, Image(s) reviewed by me Assessment/Plan Assessment/Plan Acute abdominal pain Acute enteritis : Lomotil, consult for GI Edward Gordon, will add vancomycin if C diff is positive CT abdomen pelvis without contrast negative Possible food poisoning: Patient ate salad in a restaurant two days ago PONCE Henson at bedside Plan discussed with: Patient My Orders Orders - BLANCA BENAVIDES MD Procedure Category Date Status Time * Gi Dvh Patient Accounts Coordinator CONS 03/13/25 Transmitted 12:21 Regular Diet DIET 03/13/25 Transmitted Lunch Zolpidem Tartrate PHA 03/13/25 In Process (Ambien) 12:45 Metronidazole Tablet PHA 03/13/25 In Process (Flagyl Tablet) 22:00 Lactated Ringer's PHA 03/13/25 In Process 12:45 Gabapentin Capsule PHA 03/13/25 In Process (Neurontin Capsule) 14:00 Date of Service: Mar 14, 2025 Billing Provider: BLANCA BENAVIDES MD Common Visit Codes: [id number] INP/OBS CARE(HIGH) BLANCA BENAVIDES MD Mar 14, 2025 08:26
--- NOTE | 2025-03-14 11:52 | DVHPN2 ---
Progress Note - Dictate Date Seen: Mar 14, 2025 Has the PT tested + for MRSA If YES, has PT been informed?: No Medical Necessity Reason Pt with a Central, PICC or Fol: No Subjective Patient has got some abdominal pains today no nausea no vomiting no bowel movements since yesterday Mild abdominal cramps vital signs Vital Sign Date Time Temp Pulse Resp B/P (MAP) Pulse Ox O2 Delivery O2 Flow Rate FiO2 03/14/25 10:17 64 20 125/96 03/14/25 09:00 98.0 100 98.0 03/14/25 07:28 Room Air 0.0 03/14/25 07:28 21 Total Intake and Output 03/13/25 03/13/25 03/14/25 15:00 23:00 07:00 Intake Total 1000 ml 1900 ml 2000 ml Balance 1000 ml 1900 ml 2000 ml medications Current Medications Medications Dose Ordered Sig/Tim Route Start Time Stop Time Status Last Admin Dose Admin Loperamide HCl 2 mg PRN PRN PO 03/12/25 21:15 Pantoprazole Sodium 40 mg DAILY@0600 PO 03/13/25 06:00 03/14/25 05:32 40 MG Albuterol 2.5 mg Q6HPRN PRN NEB 03/12/25 21:15 Acetaminophen/ Hydrocodone Bitart 1 tab Q4HP PRN PO 03/12/25 21:15 Ondansetron HCl 4 mg Q4HP PRN IV 03/12/25 21:15 03/14/25 10:09 4 MG Acetaminophen 650 mg Q6HP PRN PO 03/12/25 21:15 Morphine Sulfate 2 mg Q4HPRN PRN IV 03/12/25 21:15 03/14/25 10:17 2 MG Gabapentin 900 mg TID PO 03/13/25 14:00 03/14/25 05:32 900 MG Zolpidem Tartrate 10 mg HSPRN PRN PO 03/13/25 12:45 03/13/25 22:15 10 MG Metronidazole 500 mg Q12HR PO 03/13/25 22:00 03/14/25 11:33 500 MG Lactated Ringer's 1,000 ml @ 150 mls/hr Q6H40M IV 03/13/25 12:45 03/14/25 11:33 150 MLS/HR objective Abdomen is soft slightly obese periumbilical hernia mild tenderness both lower quadrants and periumbilically Rigidity no guarding Bowel sounds present Stool C diff result not back On Flagyl We will check electrolytes last potassium was 3.8 laboratory and microbiology Laboratory Tests 03/13/25 04:24 03/12/25 16:15 Test 03/13/25 04:24 Range/Units Serum Glucose 127 H 74-106 mg/dL Assessment/Plan 49-year-old female with complaints of severe diarrhea for the last one week watery type in any unusual food ingestion antibiotic abuse or travel. No abdominal pains no hematemesis or melena Clinical impression is diarrhea possibly infectious possibility of C diff also can not be excluded C diff results not back Has some abdominal pain constipation will check the electrolytes to ensure no low potassium Probably ileus Will increase feeds slowly symptomatic treatment Thank you Dr. Luciano Bailey discussed with: Patient FLORIDALMA DSOUZA MD Mar 14, 2025 11:52
[2025-03-14 12:13] LABS: Basophils # (auto) 0 10 ^3/uL (0-0.2); Basophils % (auto) 0.4 % (0.0-2.0); Eosinophils # (auto) 0.1 10 ^3/uL (0-0.8); Eosinophils % (auto) 2.3 % (0.0-7.0); Hematocrit 39.4 % (36.0-46.0); Hemoglobin 13.1 g/dL (12.2-16.2); Lymphocytes # (auto) 1.9 10 ^3/uL (0.4-5.4); Lymphocytes % (auto) 31.3 % (10.0-50.0); Mean Corpuscular Hemoglobin 29.4 pg (28.0-32.0); Mean Corpuscular Hgb Conc. 33.2 g/dL (32.0-36.0); Mean Corpuscular Volume 88.6 fL (80.0-100.0); Monocytes # (auto) 0.8 10 ^3/uL (0-1.3); Monocytes % (auto) 13.2 % (0.0-12.0); Neutrophils # (auto) 3.3 10 ^3/uL (1.6-8.6); Neutrophils % (auto) 52.8 % (37.0-80.0); Platelet Count (auto) 173 10^3/uL (140-450); Red Blood Cells 4.45 10^6/uL (4.0-5.20); Red Cell Distribution Width 14.7 % (11.8-14.3); White Blood Cell 6.2 10^3/uL (4.4-10.8)
[2025-03-14 12:28] LABS: Alanine Aminotransferase 16 U/L (7-40); Albumin 3.9 g/dL (3.2-4.8); Alkaline Phosphatase 77 U/L (46-116); Anion Gap 9 (5-15); Aspartate Aminotransferase 16 U/L (13-40); BUN/Creatinine Ratio 11.2 (10.0-20.0); Blood Urea Nitrogen 10 mg/dL (9-23); Calcium 9.3 mg/dL (8.7-10.4); Carbon Dioxide 27 mmol/L (20-31); Potassium 3.7 mmol/L (3.5-5.1); Sodium 145 mmol/L (136-145); Total Protein 5.9 g/dL (5.7-8.2)
[2025-03-14 12:29] LABS: Bilirubin, Total 0.5 mg/dL (0.2-1.0)
[2025-03-14 12:30] LABS: Chloride 109 mmol/L (98-107); Glucose 65 mg/dL (74-106)
[2025-03-14] MEDS: HYDROcodone-ACET 5/325MG TAB PO PRN (19:16)
[2025-03-15] VITALS (9 sets, daily range): BP systolic 107–139; BP diastolic 63–77; PULSE 64–73; RESP 17–20; TEMP 97.3–99.4; O2SAT 90–99
[2025-03-15] MEDS: ACETAMINOPHEN 325 MG TAB PO PRN (02:11)
--- NOTE | 2025-03-15 08:10 | DVHPN2 ---
Reviewed: Care Plan, H&P, Labs, Medications, Previous Orders, Radiology Changes from previous H/P or p: No Changes Objective Vitals Vital Signs Date Time Temp Pulse Resp B/P (MAP) Pulse Ox O2 Delivery O2 Flow Rate FiO2 03/15/25 05:00 97.3 73 18 107/63 (78) 90 97.3 03/14/25 20:00 Room Air* 0 21 Intake/Output Intake and Output 03/15/25 07:00 Intake Total 2900 ml Balance 2900 ml Intake Oral 1200 ml IV Total 1700 ml # Voids 5 Medications Current Medications Medications Dose Ordered Sig/Tim Route Start Time Stop Time Status Last Admin Dose Admin Loperamide HCl 2 mg PRN PRN PO 03/12/25 21:15 Pantoprazole Sodium 40 mg DAILY@0600 PO 03/13/25 06:00 03/15/25 05:53 40 MG Albuterol 2.5 mg Q6HPRN PRN NEB 03/12/25 21:15 Acetaminophen/ Hydrocodone Bitart 1 tab Q4HP PRN PO 03/12/25 21:15 03/14/25 19:16 1 TAB Ondansetron HCl 4 mg Q4HP PRN IV 03/12/25 21:15 03/15/25 02:11 4 MG Acetaminophen 650 mg Q6HP PRN PO 03/12/25 21:15 03/15/25 02:11 650 MG Morphine Sulfate 2 mg Q4HPRN PRN IV 03/12/25 21:15 03/14/25 16:55 2 MG Gabapentin 900 mg TID PO 03/13/25 14:00 03/15/25 05:53 900 MG Zolpidem Tartrate 10 mg HSPRN PRN PO 03/13/25 12:45 03/14/25 22:49 10 MG Metronidazole 500 mg Q12HR PO 03/13/25 22:00 03/14/25 21:45 500 MG Lactated Ringer's 1,000 ml @ 150 mls/hr Q6H40M IV 03/13/25 12:45 03/15/25 05:58 150 MLS/HR Laboratory Results Laboratory Tests 03/14/25 12:03 Chemistry Test 03/14/25 12:03 Albumin 3.9 g/dL (3.2-4.8) Calcium Level 9.3 mg/dL (8.7-10.4) Total Protein 5.9 g/dL (5.7-8.2) LFT Test 03/14/25 12:03 Alanine Aminotransferase (ALT) 16 U/L (7-40) Alkaline Phosphatase 77 U/L (46-116) Aspartate Amino Transferase (AST) 16 U/L (13-40) Total Bilirubin 0.5 mg/dL (0.2-1.0) Urinalysis Test 03/12/25 15:48 Urine Color Light-yellow (Yellow) Urine Clarity Clear (Clear) Urine pH 6.0 (5.0-9.0) Urine Specific [place] 1.014 (1.001-1.035) Urine Protein Negative (Negative) Urine Ketones Negative (Negative) Urine Blood Negative /uL (Negative) Urine Nitrite Negative (Negative) Urine Bilirubin Negative (Negative) Urine Urobilinogen Normal mg/dL (Negative) Urine Leukocyte Esterase Negative /uL (Negative) Urine RBC <1 /hpf (0 - 4) Urine Microscopic WBC 1 /HPF (0-5) Urine Squamous Epithelial Cells Few /hpf (<5) Urine Bacteria None seen /hpf (None Seen) Urine Glucose Normal mg/dL (Normal) Urine Test Negative (Negative) Microbiology Microbiology Date/Time Source Procedure Growth Status 03/13/25 09:46 Stool Stool Culture - Preliminary Resulted 03/13/25 09:46 Stool Shiga Toxin I & II - Final Resulted 03/13/25 09:46 Stool Clostridium difficile Toxin Assay - Final Resulted 03/12/25 16:15 Blood Blood Culture - Preliminary NO GROWTH AFTER 48 HOURS OF INCUBATION. Resulted Labs and/or images reviewed: Labs reviewed by me, Image(s) reviewed by me Assessment/Plan Assessment/Plan Acute abdominal pain Acute enteritis : Lomotil, consult for GI Edward Gordon, stool studies negative, C diff negative CT abdomen pelvis without contrast negative History of umbilical hernia surgery times two History of endometriosis and fibroids and status post hysterectomy Possible enterocolitis secondary to food poisoning: Patient ate salad in a restaurant two days ago Patient complaining of burning pain lower abdomen: Repeat CBC CMP UA CT abdomen pelvis without contrast Plan discussed with: Patient Date of Service: Mar 15, 2025 Billing Provider: BLANCA BENAVIDES MD Common Visit Codes: [id number] INP/OBS CARE(HIGH) BLANCA BENAVIDES MD Mar 15, 2025 08:10
[2025-03-15 08:45] LABS: Urine Bacteria None Seen /hpf (None Seen)
[2025-03-15 09:08] LABS: Urine Blood Negative /uL (Negative); Urine Clarity Clear (Clear); Urine Color Light-Yellow (Yellow); Urine Protein, UAD Negative (Negative); Urine Specific Gravity 1.011 (1.001-1.035); Urine Squamous Epithelial Cell FEW /hpf (<5); Urine Urobilinogen Normal (Negative); Urine WBC 2 /HPF (0-5); Urine pH 6.5 (5.0-9.0)
--- NOTE | 2025-03-15 09:49 | DVHINCON2 ---
Consultation - Surgical Date Seen: Mar 15, 2025 Referring Physician Referring Physician james Reason for Consultation Umbilical hernia History of Present Illness History of Present Illness This 49-year-old female presented to the emergency room with complaints of one week history of abdominal pain which is diffuse with the associated with diarrhea no nausea no vomiting no history of any unusual food ingestion were diarrhea very copious watery about 6-8 bowel movements per day no fever chills or other systemic symptoms no history of any unusual food ingestion no history of any travel no history of any antibiotic intake recently Patient states she has had multiple umbilical hernia repairs. Most recent1 was 2020. She has had umbilical hernia now approximately 2 years. Always has been reducible. Since admission she states the diarrhea has resolved. She still has burning sensations in her abdomen. Past Medical/Surgical History Past Medical/Surgical History Asthma, fibromyalgia, multiple umbilical hernia repairs, gastric bypass Family and Social History Family and Social History Nonsmoker nondrinker Allergies and medications Allergies: Coded Allergies: Banana (Verified Allergy, Severe, 03/13/25) Honey (Verified Allergy, Severe, 03/13/25) Kiwi Extract (Verified Allergy, Severe, 03/13/25) Pineapple (Verified Allergy, Severe, 03/13/25) Aspirin (Verified Allergy, Unknown, 03/12/25) Chlorhexidine (Verified Allergy, Unknown, 03/12/25) Latex (Verified Allergy, Unknown, 03/12/25) Sulfa Antibiotics (Verified Allergy, Unknown, 03/12/25) Home Meds Reported Medications Hydromorphone Hcl (Hydromorphone Hcl) 4 Mg Tab, 1 TAB PO QID PRN for PAIN SCALE 7 THRU 10 03/13/25 Methocarbamol (Methocarbamol) 750 Mg Tab, 2 TAB PO QID 03/13/25 Gabapentin (Gabapentin) 300 Mg Cap, 900 CAP PO 03/13/25 Zolpidem Tartrate (Zolpidem Tartrate) 10 Mg Tab, 1 TAB PO 03/13/25 Review of systems Review of Systems: HEENT:Normal, CVS:Normal, RESPIRATORY:Normal, GI:Abnormal, :Normal, NEURO:Normal Examination Vital signs Vital Signs Date Time Temp Pulse Resp B/P (MAP) Pulse Ox O2 Delivery O2 Flow Rate FiO2 03/15/25 07:46 92 Room Air* 0 21 03/15/25 05:00 97.3 73 18 107/63 (78) 97.3 Laboratory Labs Test 03/15/25 08:40 03/14/25 12:03 03/12/25 16:15 03/12/25 15:48 Range/Units Urine Color Light-yellow Yellow Urine Clarity Clear Clear Urine pH 6.5 5.0-9.0 Urine Specific [place] 1.011 1.001-1.035 Urine Protein Negative Negative Urine Ketones Negative Negative Urine Blood Negative Negative /uL Urine Nitrite Negative Negative Urine Bilirubin Negative Negative Urine Urobilinogen Normal Negative mg/dL Urine Leukocyte Esterase Negative Negative /uL Urine RBC None seen 0 - 4 /hpf Urine Microscopic WBC 2 0-5 /HPF Urine Squamous Epithelial Cells Few <5 /hpf Urine Bacteria None seen None Seen /hpf Urine Glucose Normal Normal mg/dL White Blood Count 6.2 4.4-10.8 10^3/uL Red Blood Count 4.45 4.0-5.20 10^6/uL Hemoglobin 13.1 12.2-16.2 g/dL Hematocrit 39.4 36.0-46.0 % Mean Corpuscular Volume 88.6 80.0-100.0 fL Mean Corpuscular Hemoglobin 29.4 28.0-32.0 pg Mean Corpuscular Hemoglobin Concent 33.2 32.0-36.0 g/dL Red Cell Distribution Width 14.7 H 11.8-14.3 % Platelet Count 173 140-450 10^3/uL Mean Platelet Volume 10.7 6.9-10.8 fL Neutrophils (%) (Auto) 52.8 37.0-80.0 % Lymphocytes (%) (Auto) 31.3 10.0-50.0 % Monocytes (%) (Auto) 13.2 H 0.0-12.0 % Eosinophils (%) (Auto) 2.3 0.0-7.0 % Basophils (%) (Auto) 0.4 0.0-2.0 % Neutrophils # (Auto) 3.3 1.6-8.6 10 ^3/uL Lymphocytes # (Auto) 1.9 0.4-5.4 10 ^3/uL Monocytes # (Auto) 0.8 0-1.3 10 ^3/uL Eosinophils # (Auto) 0.1 0-0.8 10 ^3/uL Basophils # (Auto) 0 0-0.2 10 ^3/uL Nucleated Red Blood Cells 0.0 % Sodium Level 145 136-145 mmol/L Potassium Level 3.7 3.5-5.1 mmol/L Chloride Level 109 H 98-107 mmol/L Carbon Dioxide Level 27 20-31 mmol/L Anion Gap 9 5-15 Blood Urea Nitrogen 10 9-23 mg/dL Creatinine 0.89 0.550-1.02 mg/dL Glomerular Filtration Rate Calc 79 >90 mL/min BUN/Creatinine Ratio 11.2 10.0-20.0 Serum Glucose 65 L 74-106 mg/dL Calcium Level 9.3 8.7-10.4 mg/dL Total Bilirubin 0.5 0.2-1.0 mg/dL Aspartate Amino Transferase (AST) 16 13-40 U/L Alanine Aminotransferase (ALT) 16 7-40 U/L Alkaline Phosphatase 77 46-116 U/L Total Protein 5.9 5.7-8.2 g/dL Albumin 3.9 3.2-4.8 g/dL Lactic Acid Level 0.9 0.4-2.0 mmol/L Lipase 30 12-53 U/L Beta HCG, Quantitative 5.5 H 1.5-4.2 mIU/mL Urine Test Negative Negative Microbiology Date/Time Source Procedure Growth Status 03/13/25 09:46 Stool Stool Culture - Preliminary Resulted 03/13/25 09:46 Stool Shiga Toxin I & II - Final Resulted 03/13/25 09:46 Stool Clostridium difficile Toxin Assay - Final Resulted 03/12/25 16:15 Blood Blood Culture - Preliminary NO GROWTH AFTER 48 HOURS OF INCUBATION. Resulted Exam: CT CT AB PEL WO CON-NO ORAL OR IV History: mid/low abd pain, n/v/d Comparison Study: None available at time of dictation. TECHNIQUE: Multidetector CT of the abdomen was performed from lung bases to pubic symphysis. Imaging was performed without IV contrast. Axial, coronal and sagittal multiplanar reformats were obtained from the axial data set by the technologist. Radiation Dose Information: CT Dose: CTDI volume is 26.51 mGy. Dose-length product is 1431.12 mGy*cm FINDINGS: Evaluation of solid organs is limited due to lack of intravenous contrast use. Findings: Lung Bases: No acute or significant lung base finding. Normal heart size. No pleural or pericardial effusion. Liver: The liver is normal in size. No focal lesions. Gallbladder and Biliary Tree: Gallbladder has been surgically removed. Spleen: Unremarkable Pancreas: The pancreas is grossly normal in appearance. Adrenal Glands: Unremarkable Kidneys: Kidneys are grossly normal without calculi or hydronephrosis. Bladder: Grossly unremarkable for degree of distention. Bowel: The stomach is grossly normal in appearance. Postop changes in the stomach. Small bowel and colon are normal in caliber and distribution. The appendix is not visualized; however, no secondary findings of acute appendicitis identified. Ascites: Absent Lymphadenopathy: No mesenteric, retroperitoneal or periportal lymphadenopathy. Abdominal Wall and Mesentery: 6 cm umbilical hernia containing mesenteric fat and bowel. Vasculature: The visualized abdominal aorta is normal in size and caliber. Evaluation of abdominal and pelvic vessels is limited due to lack of intravenous contrast. Pelvic Organs: Unremarkable Musculoskeletal: No aggressive focal bony lesions, acute fractures or dislocation. Soft tissues: Unremarkable IMPRESSION: 1. Gallbladder surgically removed 2. Postop changes to the stomach 3. No findings to suggest bowel obstruction. 4. No nephrolithiasis or hydronephrosis. 5. 6 cm umbilical hernia containing bowel and mesenteric fat. Radiation optimization: All CT scans at this facility use at least one of these dose optimization techniques: automated exposure control mA and/or kV adjustment per patient size (includes targeted exams where dose is matched to clinical indication) or iterative reconstruction. Examination: GENERAL:Normal, HEENT:Normal, NECK:Normal, ABDOMEN:Abnormal (Reducible umbilical hernia. Nontender no guarding no rebound), SKIN:Normal, :Normal Problem List/Assessment/Plan Problems: (1) Abdominal pain Assessment and Plan 49-year-old female with a history of gastric bypass surgery and multiple recurrent umbilical hernias. Patient presented with history of diarrhea for 1 week. Continue with GI workup No acute surgical intervention at this time. Cultures pending. Plan discussed with Plan discussed with: Patient Visit Coding Surgery Date of Service if different f: Mar 15, 2025 Billing Provider: KEELY SALGADO Jr., MD Surgery Visit Codes: 66812 - INP CONSULT <80 MIN KEELY SALGADO Jr., MD Mar 15, 2025 09:49
[2025-03-15 10:15] LABS: Basophils # (auto) 0 10 ^3/uL (0-0.2); Basophils % (auto) 0.6 % (0.0-2.0); Eosinophils # (auto) 0.2 10 ^3/uL (0-0.8); Eosinophils % (auto) 4.5 % (0.0-7.0); Hematocrit 36.6 % (36.0-46.0); Hemoglobin 12.6 g/dL (12.2-16.2); Lymphocytes # (auto) 1.5 10 ^3/uL (0.4-5.4); Lymphocytes % (auto) 30.1 % (10.0-50.0); Mean Corpuscular Hemoglobin 30.1 pg (28.0-32.0); Mean Corpuscular Hgb Conc. 34.4 g/dL (32.0-36.0); Mean Corpuscular Volume 87.6 fL (80.0-100.0); Monocytes # (auto) 0.6 10 ^3/uL (0-1.3); Neutrophils # (auto) 2.7 10 ^3/uL (1.6-8.6); Neutrophils % (auto) 53.8 % (37.0-80.0); Nucleated Red Blood Cells % 0.1 %; Platelet Count (auto) 172 10^3/uL (140-450); Red Blood Cells 4.18 10^6/uL (4.0-5.20); Red Cell Distribution Width 14.2 % (11.8-14.3)
[2025-03-15 10:25] LABS: Alanine Aminotransferase 15 U/L (7-40); Albumin 3.7 g/dL (3.2-4.8); Alkaline Phosphatase 72 U/L (46-116); Anion Gap 5 (5-15); Aspartate Aminotransferase 15 U/L (13-40); BUN/Creatinine Ratio 9.5 (10.0-20.0); Bilirubin, Total 0.6 mg/dL (0.2-1.0); Calcium 9.2 mg/dL (8.7-10.4); Carbon Dioxide 28 mmol/L (20-31); Glucose 99 mg/dL (74-106); Potassium 4.2 mmol/L (3.5-5.1); Sodium 141 mmol/L (136-145); Total Protein 5.7 g/dL (5.7-8.2)
[2025-03-15 10:27] LABS: INR 1.09 (0.9-1.15); Partial Thromboplastin Time 26.6 SEC (24.5-34.5); Prothrombin Time 11.5 sec (9.3-11.8)
[2025-03-15 10:30] LABS: Blood Urea Nitrogen 8 mg/dL (9-23); Chloride 108 mmol/L (98-107)
--- NOTE | 2025-03-15 10:43 | DVH ---
CT ABDOMEN AND PELVIS WITHOUT CONTRAST CLINICAL HISTORY: Lower abdominal burning pain TECHNIQUE: Multiple contiguous axial images of the abdomen and pelvis without intravenous contrast. T he images were reformatted degenerate coronal and sagittal reconstructions. All CT scans at this medical facility are performed using dose modulation techniques as appropriate t o a performed exam including the following:Automated exposure control was utilized; adjustment of the MA and/or KV according to patient size; and use of iterative reconstruction technique. Radiation Dose Information: CT Dose: CTDI volume is 25.63 mGy. Dose-length product is 1538.15 mGy*cm Comparison: CT CT AB PEL WO CON-NO ORAL OR IV on DOS: 03/12/25 FINDINGS: Evaluation of the abdomen and pelvis is limited without intravenous contrast. The gallbladder is surgically absent. The liver, pancreas, kidneys, adrenal glands, and spleen marcelo ear within normal limits. There is no gross evidence of abdominal lymphadenopathy. There is no free fluid or free air. There are gastric postsurgical changes likely related to bypass surgery. There is small hiatal herni a. There is a umbilical hernia containing intra-abdominal fat and small bowel loops. The neck of the he rnia measures 4.0 cm in transverse diameter. The small and large bowel loops demonstrate normal calib er without evidence of bowel obstruction. The appendix is not seen in the right lower quadrant abdome n. The small and large bowel loops demonstrate normal caliber and distribution. There are scattered dive rticula in the colon without evidence of acute diverticulitis. The abdominal aorta and IVC appear within normal limits. Bladder is decompressed limiting evaluation. The uterus grossly appears within normal limits.. There is no gross evidence of a pelvic mass. There is no free fluid collection. Lung bases are clear. There is no acute osseous abnormality. IMPRESSION: 1. There is no acute process in the abdomen and pelvis. 2. There is a umbilical hernia containing intra-abdominal fat and small bowel loops. There is no evid ence of bowel obstruction. 3. Gastric postsurgical changes likely related to bypass surgery. There is small hiatal hernia. HS:Y
--- NOTE | 2025-03-15 17:01 | DVHINCON2 ---
SURGICAL CONSULTATION HISTORY OF PRESENT ILLNESS: The patient is a 49-year-old female examined and interviewed in her hospital bed. She is in no distress. She has been admitted due to abdominal pain and diarrhea. The patient complains of cramping and burning pain in the mid-abdomen, where she has had two consecutive ventral hernia repairs done laparoscopically. The patient has had diarrhea, for which she took Imodium; however, the diarrhea has now subsided. ALLERGIES: THE PATIENT HAS ALLERGY TO ASPIRIN, CHLORHEXIDINE, LATEX, SULFA; SHE IS ALSO ALLERGIC TO BANANAS, PINEAPPLE, and HONEY. PAST SURGICAL HISTORY: The patient had a previous gastric bypass (Alyssa-en-[id number]), following which she lost significant body weight. She since then had two hernia repairs (with mesh) in the mid-abdomen. The patient's past medical history is otherwise contributory and that she has fibromyalgia. She had previous appendectomy, cholecystectomy, , hernia repairs, and gastric bypass. The patient also had a history of perforated ulcer, pilonidal cyst surgery. REVIEW OF SYSTEMS: Review of all 12 systems is otherwise not contributory to her current illness. PHYSICAL EXAMINATION: GENERAL: Reveals an obese female. HEENT: Pupils are equal, round, react to light equally. Sclerae nonicteric. Extraocular motion is intact. Uvula midline. Trachea midline. Carotids are full without bruits. Jugular veins are collapsed. HEART: Regular rate and rhythm without murmur or gallop. ABDOMEN: Obese. There is palpable visible herniation in the supraumbilical area, which is tender to palpation. No CVA tenderness. EXTREMITIES: No peripheral vascular insufficiency. No venous stasis. LABORATORY DATA: Normal white count. Normal H and H. Normal platelet count. The patient's INR is 1.09. PT is 11.5. The patient's imaging was done by means of an abdominal CT scan, which was repeated. The initial CT scan shows a surgical absent gallbladder postoperative changes in the area of the stomach, no obstruction, no nephrolithiasis, a large 6 cm umbilical hernia containing bowel and mesenteric fat. Subsequently, the patient underwent a second CT scan without contrast, which showed umbilical hernia containing fat and multiple small bowel loops without evidence of obstruction. DIAGNOSIS: Recurrent ventral hernia repair. ASSESSMENT AND PLAN: Risks and potential complications explained in detail. Explained to the patient due to her obesity, she is at risk for recurrence again. Repair will most likely necessitate mesh insertion. MD PETER Amos/JAVI TID: [id number] RECEIPT: [id number]
[2025-03-16 05:00] VITALS: BP 127/70; PULSE 55; RESP 18; TEMP 98.3; O2SAT 98
--- NOTE | 2025-03-16 07:31 | DVH ---
EXAM: XR Chest, 1 View CLINICAL INDICATION: PT IS 49 AND REQUIRES A PRE OP CXR TECHNIQUE: Frontal view of the chest. COMPARISON: None FINDINGS: LUNGS AND PLEURAL SPACES: Unremarkable. No consolidation. No pneumothorax. HEART: Unremarkable. No cardiomegaly. MEDIASTINUM: Unremarkable. Normal mediastinal contour. BONES/JOINTS: Unremarkable. No acute fracture. OTHER FINDINGS: . None. IMPRESSION: No acute cardiopulmonary process.
[2025-03-16 08:00] VITALS: PULSE 50; RESP 18; O2SAT 100
--- NOTE | 2025-03-16 08:16 | DVHPN2 ---
Reviewed: Care Plan, H&P, Labs, Medications, Previous Orders, Radiology Changes from previous H/P or p: No Changes Objective Vitals Vital Signs Date Time Temp Pulse Resp B/P (MAP) Pulse Ox O2 Delivery O2 Flow Rate FiO2 03/16/25 05:00 98.3 55 18 127/70 (89) 98 98.3 03/15/25 21:24 0.0 21 03/15/25 21:24 Room Air* Intake/Output Intake and Output 03/16/25 07:00 Intake Total 1570 ml Balance 1570 ml Intake Oral 1570 ml # Voids 7 # Bowel Movements 1 Medications Current Medications Medications Dose Ordered Sig/Tim Route Start Time Stop Time Status Last Admin Dose Admin Loperamide HCl 2 mg PRN PRN PO 03/12/25 21:15 Pantoprazole Sodium 40 mg DAILY@0600 PO 03/13/25 06:00 03/15/25 05:53 40 MG Albuterol 2.5 mg Q6HPRN PRN NEB 03/12/25 21:15 Acetaminophen/ Hydrocodone Bitart 1 tab Q4HP PRN PO 03/12/25 21:15 03/14/25 19:16 1 TAB Ondansetron HCl 4 mg Q4HP PRN IV 03/12/25 21:15 03/15/25 20:11 4 MG Acetaminophen 650 mg Q6HP PRN PO 03/12/25 21:15 03/15/25 02:11 650 MG Morphine Sulfate 2 mg Q4HPRN PRN IV 03/12/25 21:15 03/15/25 20:12 2 MG Gabapentin 900 mg TID PO 03/13/25 14:00 03/15/25 22:48 900 MG Zolpidem Tartrate 10 mg HSPRN PRN PO 03/13/25 12:45 03/15/25 22:48 10 MG Metronidazole 500 mg Q12HR PO 03/13/25 22:00 03/15/25 22:48 500 MG Lactated Ringer's 1,000 ml @ 150 mls/hr Q6H40M IV 03/13/25 12:45 03/15/25 16:16 150 MLS/HR Laboratory Results Laboratory Tests 03/15/25 09:55 Chemistry Test 03/15/25 09:55 Albumin 3.7 g/dL (3.2-4.8) Calcium Level 9.2 mg/dL (8.7-10.4) Total Protein 5.7 g/dL (5.7-8.2) Coagulation Test 03/15/25 09:55 Prothrombin Time 11.5 sec (9.3-11.8) Prothrombin Time INR 1.09 (0.9-1.15) Activated Partial Thromboplast Time 26.6 SEC (24.5-34.5) LFT Test 03/15/25 09:55 Alanine Aminotransferase (ALT) 15 U/L (7-40) Alkaline Phosphatase 72 U/L (46-116) Aspartate Amino Transferase (AST) 15 U/L (13-40) Total Bilirubin 0.6 mg/dL (0.2-1.0) Urinalysis Test 03/12/25 15:48 03/15/25 08:40 Urine Test Negative (Negative) Urine Color Light-yellow (Yellow) Urine Clarity Clear (Clear) Urine pH 6.5 (5.0-9.0) Urine Specific [place] 1.011 (1.001-1.035) Urine Protein Negative (Negative) Urine Ketones Negative (Negative) Urine Blood Negative /uL (Negative) Urine Nitrite Negative (Negative) Urine Bilirubin Negative (Negative) Urine Urobilinogen Normal mg/dL (Negative) Urine Leukocyte Esterase Negative /uL (Negative) Urine RBC None seen /hpf (0 - 4) Urine Microscopic WBC 2 /HPF (0-5) Urine Squamous Epithelial Cells Few /hpf (<5) Urine Bacteria None seen /hpf (None Seen) Urine Glucose Normal mg/dL (Normal) Microbiology Microbiology Date/Time Source Procedure Growth Status 03/13/25 09:46 Stool Stool Culture - Preliminary Resulted 03/13/25 09:46 Stool Shiga Toxin I & II - Final Resulted 03/13/25 09:46 Stool Clostridium difficile Toxin Assay - Final Resulted 03/12/25 16:15 Blood Blood Culture - Preliminary NO GROWTH AFTER 72 HOURS OF INCUBATION. Resulted Labs and/or images reviewed: Labs reviewed by me, Image(s) reviewed by me Assessment/Plan Assessment/Plan Acute abdominal pain, resolved Acute enteritis : Thai, consult for GI Edward Gordon, stool studies negative, C diff negative CT abdomen pelvis without contrast negative Recurrent umbilical hernia, patient had surgery x2 in the past, Dr. Santiago discussed at length with the patient at bedside about the possible complications of repeat surgery and patient chose not to have surgery now History of gastric bypass surgery History of endometriosis and fibroids and status post hysterectomy Possible enterocolitis secondary to food poisoning: Patient ate salad in a restaurant two days ago Patient complaining of burning pain lower abdomen: Repeat CBC CMP UA all negative, CT abdomen pelvis without contrast negative. Plan discussed with: Patient My Orders Orders - BLANCA BENAVIDES MD Procedure Category Date Status Time Ct Ab Pel Wo Con-No CT 03/15/25 Resulted Oral Or Iv 08:10 * Surgical Consult CONS 03/15/25 Transmitted Date of Service: Mar 16, 2025 Billing Provider: BLANCA BENAVIDES MD Common Visit Codes: [id number] INP/OBS CARE(HIGH) BLANCA BENAVIDES MD Mar 16, 2025 08:16
--- NOTE | 2025-03-16 08:20 | DVHDS2 ---
Discharge Summary Date of Admission Mar 12, 2025 at 21:02 Date of Discharge: Mar 16, 2025 Admitting Diagnosis Abdominal pain nausea and vomiting and diarrhea Wounds: None Labs/Diagnostic Data: Laboratory Results Test 03/15/25 09:55 03/15/25 08:40 03/12/25 16:15 03/12/25 15:48 White Blood Count 5.0 10^3/uL (4.4-10.8) Red Blood Count 4.18 10^6/uL (4.0-5.20) Hemoglobin 12.6 g/dL (12.2-16.2) Hematocrit 36.6 % (36.0-46.0) Mean Corpuscular Volume 87.6 fL (80.0-100.0) Mean Corpuscular Hemoglobin 30.1 pg (28.0-32.0) Mean Corpuscular Hemoglobin Concent 34.4 g/dL (32.0-36.0) Red Cell Distribution Width 14.2 % (11.8-14.3) Platelet Count 172 10^3/uL (140-450) Mean Platelet Volume 11.6 fL (6.9-10.8) Neutrophils (%) (Auto) 53.8 % (37.0-80.0) Lymphocytes (%) (Auto) 30.1 % (10.0-50.0) Monocytes (%) (Auto) 11.0 % (0.0-12.0) Eosinophils (%) (Auto) 4.5 % (0.0-7.0) Basophils (%) (Auto) 0.6 % (0.0-2.0) Neutrophils # (Auto) 2.7 10 ^3/uL (1.6-8.6) Lymphocytes # (Auto) 1.5 10 ^3/uL (0.4-5.4) Monocytes # (Auto) 0.6 10 ^3/uL (0-1.3) Eosinophils # (Auto) 0.2 10 ^3/uL (0-0.8) Basophils # (Auto) 0 10 ^3/uL (0-0.2) Nucleated Red Blood Cells 0.1 % Prothrombin Time 11.5 sec (9.3-11.8) Prothrombin Time INR 1.09 (0.9-1.15) Activated Partial Thromboplast Time 26.6 SEC (24.5-34.5) Sodium Level 141 mmol/L (136-145) Potassium Level 4.2 mmol/L (3.5-5.1) Chloride Level 108 mmol/L (98-107) Carbon Dioxide Level 28 mmol/L (20-31) Anion Gap 5 (5-15) Blood Urea Nitrogen 8 mg/dL (9-23) Creatinine 0.84 mg/dL (0.550-1.02) Glomerular Filtration Rate Calc 85 mL/min (>90) BUN/Creatinine Ratio 9.5 (10.0-20.0) Serum Glucose 99 mg/dL (74-106) Calcium Level 9.2 mg/dL (8.7-10.4) Total Bilirubin 0.6 mg/dL (0.2-1.0) Aspartate Amino Transferase (AST) 15 U/L (13-40) Alanine Aminotransferase (ALT) 15 U/L (7-40) Alkaline Phosphatase 72 U/L (46-116) Total Protein 5.7 g/dL (5.7-8.2) Albumin 3.7 g/dL (3.2-4.8) Urine Color Light-yellow (Yellow) Urine Clarity Clear (Clear) Urine pH 6.5 (5.0-9.0) Urine Specific [place] 1.011 (1.001-1.035) Urine Protein Negative (Negative) Urine Ketones Negative (Negative) Urine Blood Negative /uL (Negative) Urine Nitrite Negative (Negative) Urine Bilirubin Negative (Negative) Urine Urobilinogen Normal mg/dL (Negative) Urine Leukocyte Esterase Negative /uL (Negative) Urine RBC None seen /hpf (0 - 4) Urine Microscopic WBC 2 /HPF (0-5) Urine Squamous Epithelial Cells Few /hpf (<5) Urine Bacteria None seen /hpf (None Seen) Urine Glucose Normal mg/dL (Normal) Lactic Acid Level 0.9 mmol/L (0.4-2.0) Lipase 30 U/L (12-53) Beta HCG, Quantitative 5.5 mIU/mL (1.5-4.2) Urine Test Negative (Negative) Other Laboratory Tests 03/15/25 09:55 Brief Hx & Hospital Course: 49-year-old female came in for abdominal pain nausea vomiting and diarrhea after eating Saturday new restaurant. The patient was treated with the IV fluids stool studies were negative for bacterial infection. C diff was negative GI consult by Dr. Wolf patient treated with Lomotil CT abdomen pelvis without contrast negative except for umbilical hernia. Patient complained of burning pain was lower abdomen repeat CBC CMP urinalysis all negative repeat CT abdomen pelvis without contrast negative except for umbilical hernia patient was seen by surgeon Dr. Santiago for umbilical hernia. She had surgery for umbilical hernia twice in the past. Possible complications of repeat umbilical hernia repair explained to the patient by the surgeon and she has chose not to have surgery at this time. Patient has history of gastric bypass surgery hysterectomy for endometriosis. At the time of discharge patient is afebrile vital signs are stable no abdominal pain nausea or vomiting. Discharged. Consults/Reason for consult GI Dr. Wolf Surgeon Dr. Santiago Operations or Procedures CT abdomen pelvis without contrast Condition at Discharge: Fair Final Diagnosis/Problems List Acute abdominal pain, resolved Acute enteritis : Thai, consult for GI Edward Gordon, stool studies negative, C diff negative CT abdomen pelvis without contrast negative Recurrent umbilical hernia, patient had surgery x2 in the past, Dr. Santiago discussed at length with the patient at bedside about the possible complications of repeat surgery and patient chose not to have surgery now History of gastric bypass surgery History of endometriosis and fibroids and status post hysterectomy Possible enterocolitis secondary to food poisoning: Patient ate salad in a restaurant two days ago Patient complaining of burning pain lower abdomen: Repeat CBC CMP UA all negative, CT abdomen pelvis without contrast negative. Discharge Disposition: Home Discharge Instruct/Medications Diet: Regular Activity: Light activity Follow Up/Referral: Follow up with the primary Dr Follow up with surgeon Dr. Santiago for elective hernia repair in a month after losing weight Medications: None 35 (Time taken for discharge summary 35 minutes) Discharge Statement: "Patient was advised to return to the ER or call 911 if any headaches, dizziness, shortness of breath, chest pain, abdominal pain, bleeding, fevers, or worsening of medical condition. Patient was counseled about treatment plan, medications, possible side effects, patientverbalized understanding. All questions were answered to the best of my ability. This discharge took greater then 30 minutes in planning, reviewing documentation, counseling the patient, and discussing with other team members." ASSESSMENT ASSESSMENT Hospital Course Improved Assessment Acute abdominal pain, resolved Acute enteritis : Thai, consult for GI Edward Gordon, stool studies negative, C diff negative CT abdomen pelvis without contrast negative Recurrent umbilical hernia, patient had surgery x2 in the past, Dr. Santiago discussed at length with the patient at bedside about the possible complications of repeat surgery and patient chose not to have surgery now History of gastric bypass surgery History of endometriosis and fibroids and status post hysterectomy Possible enterocolitis secondary to food poisoning: Patient ate salad in a restaurant two days ago Patient complaining of burning pain lower abdomen: Repeat CBC CMP UA all negative, CT abdomen pelvis without contrast negative. Date of Service: Mar 16, 2025 Billing Provider: BLANCA BENAVIDES MD Common Visit Codes: [id number] DISCH DAY >30min BLANCA BENAVIDES MD Mar 16, 2025 08:20
[2025-03-16 08:57] VITALS: BP 141/66; PULSE 50; RESP 18; TEMP 97.6; O2SAT 88
--- NOTE | 2025-03-16 09:17 | DVHPN2 ---
Progress Note Date Seen: Mar 16, 2025 Has the PT tested + for MRSA If YES, has PT been informed?: No Medical Necessity Reason Pt with a Central, PICC or Fol: No Objective vital signs Vital Sign Date Time Temp Pulse Resp B/P (MAP) Pulse Ox O2 Delivery O2 Flow Rate FiO2 03/16/25 08:57 97.6 50 18 141/66 (91) 88 97.6 03/15/25 21:24 0.0 21 03/15/25 21:24 Room Air* Total Intake and Output 03/15/25 03/15/25 03/16/25 15:00 23:00 07:00 Intake Total 1070 ml 500 ml Balance 1070 ml 500 ml medications Current Medications Medications Dose Ordered Sig/Tim Route Start Time Stop Time Status Last Admin Dose Admin Loperamide HCl 2 mg PRN PRN PO 03/12/25 21:15 Pantoprazole Sodium 40 mg DAILY@0600 PO 03/13/25 06:00 03/15/25 05:53 40 MG Albuterol 2.5 mg Q6HPRN PRN NEB 03/12/25 21:15 Acetaminophen/ Hydrocodone Bitart 1 tab Q4HP PRN PO 03/12/25 21:15 03/14/25 19:16 1 TAB Ondansetron HCl 4 mg Q4HP PRN IV 03/12/25 21:15 03/15/25 20:11 4 MG Acetaminophen 650 mg Q6HP PRN PO 03/12/25 21:15 03/15/25 02:11 650 MG Morphine Sulfate 2 mg Q4HPRN PRN IV 03/12/25 21:15 03/15/25 20:12 2 MG Gabapentin 900 mg TID PO 03/13/25 14:00 03/15/25 22:48 900 MG Zolpidem Tartrate 10 mg HSPRN PRN PO 03/13/25 12:45 03/15/25 22:48 10 MG Metronidazole 500 mg Q12HR PO 03/13/25 22:00 03/15/25 22:48 500 MG Lactated Ringer's 1,000 ml @ 150 mls/hr Q6H40M IV 03/13/25 12:45 03/15/25 16:16 150 MLS/HR laboratory and microbiology Laboratory Tests 03/15/25 09:55 Test 03/15/25 09:55 Range/Units Serum Glucose 99 74-106 mg/dL Problem List/Assessment/Plan Problem List/Assessment/Plan 03/16/25 i RECEIVED A CALL YESTERDAY pm THAT THE PATIENT HAD ADDITIONAL QUESTIONS ABOUT THE UPCOMING OPERATION, I SPOKE TO HER AT LENGTH ON THE PHONE YESTERDAY PM AND EXPLAINED THE OPERATION, THE RISKS AND COMPLICATIONS AND ANSWERED ALL HER QUESTIONS, tHIS MORNING AT 6;45 I RECEIVED A CALL THAT WHEN THE or CALLED FOR THE PATIENT TO COME DOWNSTAIRS FOR THE SCHEDULED OPERATION SHE " LOCKED HERSELF IN THE BATHROOM AND TOLD THE NURSE THROUGH THE CLOSED DOOR THAT SHE DOES NOT WANT TO HAVE AND OPERATION AND THAT SHE DOES NOT WANT TO BE NPO ANY MORE. i WENT UPSTAIRS TO HER ROOM AFTER I ARRIVED IN THE HOSPITAL, SHE WAS ACCOMPANIED BY HER AND ASKED MANY QUESTIONS, ALL OF WHICH I ANSWERED .PATIENT DOES NOT WANT TO HAVE AN OPERATIONS AT THIS TIME AND THINKS SHE WILL BE BETTER OFF IF SHE LOSES MORE WEIGHT BEFORE HAVING ANOTHER OPERATION FOR THE HERNIA WHICH HAS ALREADY BEEN REPAIRED TWICE BEFORE. OPERATION WAS CANCELLED. Plan discussed with: Patient, Spouse Dietary Evaluation Review Comments: 1 .Continue Clear liquid, advance to diet as toelrated when medically feasible. 2. Ensure BID as tolerated Expected Outcomes/Goals: normal GI function, normal appetite, free from GI symptoms ELZBIETA THOMAS MD Mar 16, 2025 09:17
[2025-03-16 09:38] VITALS: BP 141/66; PULSE 50; RESP 18; TEMP 97.6; O2SAT 100
[2025-03-16 09:57] VITALS: O2SAT 94
== END 2025-03-16 11:04 | disposition home or self-care (01) | DRG 392 ==
LOC: EEVIPCON 15:33 → ER 15:33 → OVERFLOW 21:02 → CENTRAL 22:31
PROVIDERS: ADMIT Family Medicine; ATTEND Family Medicine
DX: A05.9 Bacterial foodborne intoxication, unspecified (principal); Z68.41 Body mass index [BMI] 40.0-44.9, adult; E66.9 Obesity, unspecified; J45.909 Unspecified asthma, uncomplicated; K42.9 Umbilical hernia without obstruction or gangrene; K59.00 Constipation, unspecified; M79.7 Fibromyalgia; K43.2 Incisional hernia without obstruction or gangrene; Z98.84 Bariatric surgery status; Z90.710 Acquired absence of both cervix and uterus; Z90.49 Acquired absence of other specified parts of digestive tract; Z88.6 Allergy status to analgesic agent; Z79.899 Other long term (current) drug therapy; Z88.1 Allergy status to other antibiotic agents; Z91.040 Latex allergy status; Z88.2 Allergy status to sulfonamides; Z91.018 Allergy to other foods; A08.4 Viral intestinal infection, unspecified
CPT/HCPCS: 36415; 71045; 74176; 80048; 80053; 81001; 81025; 83605; 83690; 84702; 85025; 85610; 85730; 86850; 86900; 86901; 87040; 87045; 87427; 87493; 96361; 96372; 96374; 96375; G0378; J2405; J2470